=== PATIENT | female | born 1980 ===

== ENCOUNTER 2017-02-26 18:06 | Emergency (ER) | payer MEDICAID, OTHER ==
[2017-02-26 18:06] VITALS: BMI 24.9
[2017-02-26 18:16] VITALS: O2SAT 99
[2017-02-26] MEDS ORDERED: Sodium Chloride 0.9% 1,000 ML IV STA (19:00)
[2017-02-26 19:17] LABS: BASO % 0.3 % (0.0-2.0); EOS # 0.2 K/uL (0.0-0.7); EOS % 3.1 % (0.0-4.0); HEMOGLOBIN 13.5 g/dL (12.0-16.0); LYMPH # 1.8 K/uL (1.0-4.3); LYMPH % 25.4 % (20.0-40.0); MEAN CELL VOLUME 94.5 fl (81.0-99.0); MEAN CORPUSCULAR HEMOGLOBIN 31.2 pg (27.0-31.0); MONO # 0.7 K/uL (0.0-0.8); MONO % 9.2 % (0.0-10.0); NEUT # 4.5 K/uL (1.8-7.0); RBC 4.32 Mil/uL (3.80-5.20); WHITE BLOOD COUNT 7.3 K/uL (4.8-10.8)
--- NOTE | 2017-02-26 19:27 | ED PDOC ---
HPI: Abdomen Time Seen by Provider: 02/26/17 18:23 Chief Complaint (Nursing): Abdominal Pain Chief Complaint (Provider): Abdominal Pain History Per: Patient History/Exam Limitations: no limitations Onset/Duration Of Symptoms: Days (x1) Current Symptoms Are (Timing): Still Present Additional Complaint(s): 36 year old female with previous medical history of chronic kidney disease, who presents to the emergency department with a complaint of abdominal pain associated with nausea, 6 episodes of vomiting and 2 episodes of bloody diarrhea when she woke up at 0400 today after eating fish and homemade coconut candy the night before. Denied any fever, chills, difficulty urinating, bloody urine or incontinence. PMD: none provided Past Medical History Reviewed: Historical Data, Nursing Documentation, Vital Signs Vital Signs: Last Vital Signs Temp 97.9 F 02/26/17 19:31 Pulse 63 02/26/17 19:31 Resp 16 02/26/17 19:31 BP 90/68 L 02/26/17 19:31 Pulse Ox 99 02/26/17 23:03 - Medical History PMH: Hyperthyroidism, Hypothyroidism, Kidney Stones, Chronic Kidney Disease - Surgical History Surgical History: No Surg Hx - Family History Family History: States: Unknown Family Hx - Social History Current smoker - smoking cessation education provided: No Alcohol: Occasional Drugs: Denies - Home Medications Home Medications: Ambulatory Orders Medication Instructions Recorded Naproxen [Naprosyn] 500 mg PO Q12H #20 tab 12/31/15 traMADol [Ultram] 50 mg PO Q8 #10 tab 12/31/15 Nitrofurantoin Macrocrystals 100 mg PO BID #14 cap 04/14/16 [Macrobid] Phenazopyridine [Pyridium] 200 mg PO TID #6 tab 04/14/16 Ciprofloxacin [Cipro] 500 mg PO BID #19 tab 02/26/17 metroNIDAZOLE [Flagyl] 500 mg PO TID #29 tab 02/26/17 - Allergies Allergies/Adverse Reactions: Allergies Allergy/AdvReac Type Severity Reaction Status Date / Time No Known Allergies Allergy Verified 12/31/15 10:04 Review of Systems ROS Statement: Except As Marked, All Systems Reviewed And Found Negative Constitutional: Negative for: Fever, Chills Gastrointestinal: Positive for: Nausea, Vomiting (x6), Abdominal Pain, Diarrhea (x2 bloody episode) Genitourinary Female: Negative for: Dysuria, Incontinence, Hematuria Physical Exam - Reviewed Nursing Documentation Reviewed: Yes Vital Signs Reviewed: Yes - Physical Exam Appears: Positive for: Well, Non-toxic, No Acute Distress Cardiovascular/Chest: Positive for: Regular Rate, Rhythm, Chest Non Tender Respiratory: Positive for: Normal Breath Sounds. Negative for: Decreased Breath Sounds, Respiratory Distress Gastrointestinal/Abdominal: Positive for: Soft, Tenderness (diffuse around LLQ) . Negative for: Normal Exam, Guarding, Rebound Neurologic/Psych: Positive for: Alert (x3), Oriented - Laboratory Results Result Diagrams: 02/26/17 19:00 02/26/17 19:00 - ECG O2 Sat by Pulse Oximetry: 99 (RA) Pulse Ox Interpretation: Normal Medical Decision Making Medical Decision Making: Initial Impression: Enteritis; Food poison Initial Plan: * CT ABD/pelvis with IV contrast * CMP * Lipase * Urine * Urine dipstick * CBC * PTT * PT * Morphine 2mg IV * NS 1,000mls/hr * Zofran inj 4mg IV Upon review of old charts, pt basline systolic BP ~100. Accession No. : [id number] Patient Name / ID : RICHARDSON WAITE / [id number] Exam Date : 02/26/2017 19:50:06 ( Approved ) Study Comment : Sex / Age : F / 36Y Creator : Jim Pepe MD Dictator : Jim Pepe MD Wash Oil Cooler Operator : Bore Mill Operator : Jim Pepe MD Approver2 : Report Date : 02/27/2017 05:29:52 My Comment : PROCEDURE: CT Abdomen and Pelvis with contrast HISTORY: Abd pain, v/d COMPARISON: None. TECHNIQUE: Contrast dose: 95 cc Omnipaque 300 Radiation dose: Total exam DLP = 466.87 mGy-cm. This CT exam was performed using one or more of the following dose reduction techniques: Automated exposure control, adjustment of the mA and/or kV according to patient size, and/or use of iterative reconstruction technique. FINDINGS: LOWER THORAX: Unremarkable. LIVER: Unremarkable. No gross lesion or ductal dilatation. GALLBLADDER AND BILE DUCTS: Unremarkable. PANCREAS: Unremarkable. No gross lesion or ductal dilatation. SPLEEN: Unremarkable. ADRENALS: Unremarkable. No mass. KIDNEYS AND URETERS: Unremarkable. No hydronephrosis. No solid mass. VASCULATURE: Unremarkable. No aortic aneurysm. BOWEL: Thickening of the wall of the descending colon and sigmoid consistent with acute segmental colitis. Send APPENDIX: Normal appendix. PERITONEUM: Unremarkable. No free fluid. No free air. LYMPH NODES: Unremarkable. No enlarged lymph nodes. BLADDER: Unremarkable. REPRODUCTIVE: Unremarkable. BONES: No acute fracture. OTHER FINDINGS: None. IMPRESSION: Acute colitis confined to contiguous portions of the descending colon and sigmoid. Scribe Attestation: Documented by Stacy Kennedy, acting as a scribe for Farzana Reddy MD. Provider Scribe Attestation: All medical record entries made by the Scribe were at my direction and personally dictated by me. I have reviewed the chart and agree that the record accurately reflects my personal performance of the history, physical exam, medical decision making, and the department course for this patient. I have also personally directed, reviewed, and agree with the discharge instructions and disposition. Disposition - Clinical Impression Clinical Impression: Colitis - Disposition Referrals: [facility] [Outside] Renato Samuel MD, PhD [Staff Provider] - Disposition: Routine/Home Disposition Time: 23:01 Condition: IMPROVED Prescriptions: Ciprofloxacin [Cipro] 500 mg PO BID #19 tab metroNIDAZOLE [Flagyl] 500 mg PO TID #29 tab Instructions: Colitis (ED) Forms: [employer] (Barbadian)
[2017-02-26 19:28] LABS: ALB/GLOB RATIO 1.5 (1.0-2.1); ALBUMIN 4.3 g/dL (3.5-5.0); ALT/SGPT 34 U/L (9-52); AST/SGOT 21 U/L (14-36); BLOOD UREA NITROGEN 9 mg/dl (7-17); CALCIUM 8.5 mg/dL (8.4-10.2); GFR AFRICAN-AMERICAN > 60; GFR NON-AFRICAN AMERICAN > 60; INR 1.1 (0.9-1.2); LIPASE 48 U/L (23-300); PARTIAL THROMBOPLASTIN TIME 31.7 Seconds (25.6-37.1); PROTHROMBIN TIME 11.9 Seconds (9.8-13.1)
[2017-02-26 19:32] VITALS: BP 90/68; PULSE 63; RESP 16; TEMP 97.9
[2017-02-26] MEDS ORDERED: Sodium Chloride 0.9% 50 ML IV ONE (19:41)
[2017-02-26] MEDS ORDERED: Iohexol 300 100 ML IJ ONE (19:41)
[2017-02-26] MEDS ORDERED: metroNIDAZOLE 500mg/100ml NS 100 ML IV STA (21:42)
[2017-02-26] MEDS ORDERED: Ciprofloxacin 400mg/200ml D5W 400 MG/200 ML BAG IV STA (21:42)
[2017-02-26] MEDS ORDERED: Ciprofloxacin 400mg/200ml D5W 400 MG/200 ML BAG IVPB ONE (22:08)
[2017-02-26] MEDS ORDERED: metroNIDAZOLE 500mg/100ml NS 100 ML IVPB ONE (22:09)
--- NOTE | 2017-02-27 05:31 | CT ---
PROCEDURE: CT Abdomen and Pelvis with contrast HISTORY: Abd pain, v/d COMPARISON: None. TECHNIQUE: Contrast dose: 95 cc Omnipaque 300 Radiation dose: Total exam DLP = 466.87 mGy-cm. This CT exam was performed using one or more of the following dose reduction techniques: Automated exposure control, adjustment of the mA and/or kV according to patient size, and/or use of iterative reconstruction technique. FINDINGS: LOWER THORAX: Unremarkable. LIVER: Unremarkable. No gross lesion or ductal dilatation. GALLBLADDER AND BILE DUCTS: Unremarkable. PANCREAS: Unremarkable. No gross lesion or ductal dilatation. SPLEEN: Unremarkable. ADRENALS: Unremarkable. No mass. KIDNEYS AND URETERS: Unremarkable. No hydronephrosis. No solid mass. VASCULATURE: Unremarkable. No aortic aneurysm. BOWEL: Thickening of the wall of the descending colon and sigmoid consistent with acute segmental colitis. Send APPENDIX: Normal appendix. PERITONEUM: Unremarkable. No free fluid. No free air. LYMPH NODES: Unremarkable. No enlarged lymph nodes. BLADDER: Unremarkable. REPRODUCTIVE: Unremarkable. BONES: No acute fracture. OTHER FINDINGS: None. IMPRESSION: Acute colitis confined to contiguous portions of the descending colon and sigmoid. Concordant results (preliminary interpretation) provided by [employer]. Procedure Completed: 19:53 Preliminary ([employer]) Report: Dictated and Authenticated: 21:14 Final Interpretation: 05:29. February 27, 2017.
== END 2017-02-27 00:29 | disposition home or self-care (01) ==
LOC: H.ER 18:06
DX: K52.9 Noninfective gastroenteritis and colitis, unspecified (principal); E03.9 Hypothyroidism, unspecified; E05.90 Thyrotoxicosis, unspecified without thyrotoxic crisis or storm; N18.9 Chronic kidney disease, unspecified; Z87.442 Personal history of urinary calculi
CPT/HCPCS: 74177; 80053; 81025; 83690; 85025; 85610; 85730; 99283; J0744; J2270; J2405; J7040; Q9967

== ENCOUNTER 2017-06-14 11:08 | Emergency (ER) | payer MEDICAID, OTHER ==
[2017-06-14 11:16] VITALS: BMI 23.0
[2017-06-14 11:18] VITALS: BP 101/67; PULSE 62; RESP 16; TEMP 98.2; O2SAT 100
[2017-06-14] MEDS ORDERED: Sodium Chloride 0.9% 500 ML IV STA (11:36)
--- NOTE | 2017-06-14 11:39 | ED PDOC ---
HPI: Female Pain Time Seen by Provider: 06/14/17 11:17 Chief Complaint (Provider): Vaginal bleeding History Per: Patient History/Exam Limitations: no limitations Onset/Duration Of Symptoms: Days (today) Current Symptoms Are (Timing): Still Present Additional Complaint(s): Pt. with vaginal bleeding, pelvic cramping on left lower. No dysuria, weakness , headaches, dizziness, chest pain, dyspnea. Pain started today. Bleeding for 3 days. Is [address] Bernard yesterday. Past Medical History Reviewed: Nursing Documentation, Vital Signs Vital Signs: Last Vital Signs Temp 98.2 F 06/14/17 11:16 Pulse 62 06/14/17 11:16 Resp 16 06/14/17 11:16 BP 101/67 06/14/17 11:16 Pulse Ox 100 06/14/17 11:16 - Medical History PMH: Hypothyroidism - Surgical History Surgical History: No Surg Hx - Family History Family History: States: Unknown Family Hx - Living Arrangements Living Arrangements: With Family - Social History Alcohol: None Drugs: Denies - Home Medications Home Medications: Ambulatory Orders Medication Instructions Recorded Naproxen [Naprosyn] 500 mg PO Q12H #20 tab 12/31/15 traMADol [Ultram] 50 mg PO Q8 #10 tab 12/31/15 Nitrofurantoin Macrocrystals 100 mg PO BID #14 cap 04/14/16 [Macrobid] Phenazopyridine [Pyridium] 200 mg PO TID #6 tab 04/14/16 Ciprofloxacin [Cipro] 500 mg PO BID #19 tab 02/26/17 metroNIDAZOLE [Flagyl] 500 mg PO TID #29 tab 02/26/17 - Allergies Allergies/Adverse Reactions: Allergies Allergy/AdvReac Type Severity Reaction Status Date / Time No Known Allergies Allergy Verified 06/14/17 11:30 Review of Systems ROS Statement: Except As Marked, All Systems Reviewed And Found Negative Genitourinary Female: Positive for: Vaginal Bleeding, Pelvic Pain Physical Exam - Reviewed Nursing Documentation Reviewed: Yes Vital Signs Reviewed: Yes - Physical Exam Appears: Positive for: Non-toxic, No Acute Distress Head Exam: Positive for: ATRAUMATIC, NORMAL INSPECTION, NORMOCEPHALIC Skin: Positive for: Normal Color, Warm, DRY Eye Exam: Positive for: EOMI, Normal appearance, PERRL ENT: Positive for: Normal ENT Inspection Neck: Positive for: Normal, Painless ROM Cardiovascular/Chest: Positive for: Regular Rate, Rhythm Respiratory: Positive for: CNT, Normal Breath Sounds Gastrointestinal/Abdominal: Positive for: Bowel Sounds, Soft, Tenderness (mild left lower pelvic) Back: Positive for: Normal Inspection. Negative for: L CVA Tenderness, R CVA Tenderness Extremity: Positive for: Normal ROM Neurologic/Psych: Positive for: Alert, Oriented - Laboratory Results Result Diagrams: 06/14/17 11:45 06/14/17 11:45 - ECG O2 Sat by Pulse Oximetry: 100 - CT Scan/US US Other Rad Studies (CT/US): Read By Radiologist Other Rad Interpretation: possible demise - Progress ED Course And Treament: 1626: Stable. AAOx3. Pain free. Tolerated PO. Fu with pcp and obgyn. Disposition - Clinical Impression Clinical Impression: Threatened - Patient ED Disposition Is Patient to be Admitted: No Counseled Patient/Family Regarding: Studies Performed, Diagnosis, Need For Followup - Disposition Referrals: Edy Bernard MD [Staff Provider] - 06/17/17 Disposition: Routine/Home Disposition Time: 16:28 Condition: STABLE Additional Instructions: Return if not better in [address] Bernard. Wants pt. to fu with him Saturday. Instructions: Threatened Miscarriage Forms: [facility] (Slovenian), [facility] ED School/Work Excuse
[2017-06-14 12:17] LABS: BASO % 0.2 % (0.0-2.0); EOS # 0.1 K/uL (0.0-0.7); EOS % 1.7 % (0.0-4.0); LYMPH # 1.3 K/uL (1.0-4.3); LYMPH % 20.9 % (20.0-40.0); MEAN CORPUSCULAR HEMOGLOBIN 32.1 pg (27.0-31.0); MEAN CORPUSCULAR HGB CONC 33.4 g/dL (33.0-37.0); MONO # 0.5 K/uL (0.0-0.8); MONO % 7.8 % (0.0-10.0); NEUT # 4.4 K/uL (1.8-7.0); NEUT % 69.4 % (50.0-75.0); RBC 4.05 Mil/uL (3.80-5.20); RED CELL DISTRIBUTION WIDTH 13.1 % (11.5-14.5); WHITE BLOOD COUNT 6.3 K/uL (4.8-10.8)
[2017-06-14 12:26] LABS: ALB/GLOB RATIO 1.3 (1.0-2.1); ALBUMIN 4.2 g/dL (3.5-5.0); ALT/SGPT 33 U/L (9-52); AST/SGOT 21 U/L (14-36); BLOOD UREA NITROGEN 9 mg/dl (7-17); GFR AFRICAN-AMERICAN > 60; GFR NON-AFRICAN AMERICAN > 60
--- NOTE | 2017-06-14 15:32 | US ---
PROCEDURE: OB Pelvic Ultrasound HISTORY: preg and pain, spontaneous vaginal bleeding LMP: 04/13/2017, suggesting estimated gestational age of 7 weeks 5 days. COMPARISON: None available. TECHNIQUE: Transvaginal pelvic ultrasound was performed with longitudinal and transverse images submitted for interpretation. FINDINGS: UTERUS: A gestational sac is identified within the endometrial cavity with yolk sac and pole identified. A double decidual reaction is appreciated surrounding the gestational sac. Mean crown-rump length measures 0.83 cm corresponds to 6 weeks 5 days with mean sac diameter of 2.3 cm corresponding to 6 weeks 6 day gestational age. No cardiac activity is detectable at this time. Further, a 5 mm cystic structure seen developing in the decidual reaction. Lucency in the periphery the decidual reaction may indicate subacute or limited chronic decidual hemorrhage. Uterus measures 9.4 x 6.0 x 5.3 cm. No discrete myometrial mass identified. . CERVIX: Measures 3.9 cm. Long and closed. No cervical abnormality seen. RIGHT OVARY: Measures 2.3 x 1.9 x 2.8 cm. No mass lesion. Normal flow. A small corpus luteum cyst seen related to the right ovary. LEFT OVARY: Not identified. No suspicious adnexal mass or fluid collection appreciable. FREE FLUID: None. OTHER FINDINGS: None. IMPRESSION: Findings suggest demise. pole is identified within the gestational sac in the endometrial cavity with mean crown-rump length measurement suggesting 6 weeks 5 days gestation, concordant with menstrual derived dates, but there is no detectable cardiac activity at this time. Decidual reaction may be degrading at this time with limited chorionic/ subchorionic hemorrhage not excluded. Clinical and sonographic follow-up are advised.
== END 2017-06-14 16:54 | disposition home or self-care (01) ==
LOC: H.ER 11:08
DX: O20.0 Threatened abortion (principal); Z3A.08 8 weeks gestation of pregnancy; O99.281 Endocrine, nutritional and metabolic diseases complicating pregnancy, first trimester; E03.9 Hypothyroidism, unspecified
CPT/HCPCS: 76817; 80053; 81025; 84702; 85025; 86850; 86900; 96360; 96361; 99283; J7040

== ENCOUNTER 2017-07-04 23:11 | Inpatient (IN) | payer OTHER ==
[2017-07-04 23:22] VITALS: BMI 23.1
--- NOTE | 2017-07-05 00:22 | ED PDOC ---
HPI: Female Pain Time Seen by Provider: 07/04/17 23:28 Chief Complaint (Nursing): Female Genitourinary History Per: Patient History/Exam Limitations: no limitations Onset/Duration Of Symptoms: Days Current Symptoms Are (Timing): Still Present Quality Of Discomfort: Pressure Associated Symptoms: denies: Fever, Chills, Nausea, Vomiting Additional Complaint(s): No PMHx p/w VB, abdominal cramping, patient states that she is going through a miscarriage, was seen by Dr. Bernard and was told her beta-hcg was trending downwards, for the past 5 days has been having lower abdominal cramping and bleeding, states that she went through 3 pads today. Denies lightheadedness, dizziness. No fevers, chills. Past Medical History Reviewed: Historical Data, Nursing Documentation, Vital Signs Vital Signs: Last Vital Signs Temp 98.6 F 07/04/17 23:22 Pulse 82 07/04/17 23:22 Resp 16 07/04/17 23:22 BP 124/75 07/04/17 23:22 Pulse Ox 100 07/04/17 23:22 - Medical History PMH: Asthma, Hypothyroidism, Kidney Stones, Chronic Kidney Disease - Family History Family History: States: Unknown Family Hx - Home Medications Home Medications: Ambulatory Orders Medication Instructions Recorded Levothyroxine [Synthroid] 1 tab PO DAILY 07/05/17 - Allergies Allergies/Adverse Reactions: Allergies Allergy/AdvReac Type Severity Reaction Status Date / Time No Known Allergies Allergy Verified 07/04/17 23:22 Review of Systems ROS Statement: Except As Marked, All Systems Reviewed And Found Negative Gastrointestinal: Positive for: Abdominal Pain Genitourinary Female: Positive for: Vaginal Bleeding Physical Exam - Reviewed Nursing Documentation Reviewed: Yes Vital Signs Reviewed: Yes - Physical Exam Appears: Positive for: Well, Non-toxic, No Acute Distress Head Exam: Positive for: ATRAUMATIC, NORMAL INSPECTION, NORMOCEPHALIC Skin: Positive for: Normal Color, Warm, DRY Eye Exam: Positive for: EOMI, Normal appearance, PERRL ENT: Positive for: Normal ENT Inspection Neck: Positive for: Normal, Painless ROM Cardiovascular/Chest: Positive for: Regular Rate, Rhythm Respiratory: Positive for: CNT, Normal Breath Sounds Gastrointestinal/Abdominal: Positive for: Normal Exam, Soft Pelvic Exam: Positive for: External Exam Normal, Blood (clots), Other (Cervix closed). Negative for: No Cerv. Motion Tender, No Masses, Tender W/Cervical Motion Back: Positive for: Normal Inspection Extremity: Positive for: Normal ROM Neurologic/Psych: Positive for: Alert, Oriented - Laboratory Results Result Diagrams: 07/05/17 00:35 - ECG O2 Sat by Pulse Oximetry: 100 Pulse Ox Interpretation: Normal Medical Decision Making Medical Decision MakinPM A/P: Patient w/ recent miscarriage undergoing VB and abdominal pain -patient cervix closed (english tutor was nurse Christine Briceño) -likely patient has completed Ab -will get US and beta and re-eval 130AM EXAM: US CLINICAL HISTORY: 37 years old, female; Pain and signs and symptoms; Lmp or gestational age (in weeks): 04/23/17; Antepartum complications; Bleeding; Other: Cramps/pain; ; Additional info: Vb, preg, possible demise TECHNIQUE: Real-time transvaginal and obstetrical ultrasound of the maternal pelvis and a first trimester with image documentation. Transvaginal imaging was used for better evaluation of the fetus and adnexa. COMPARISON: CT - ABD PELVIS W/O PO OR IV CONT 2015-05-11 02:04 FINDINGS: Gestation: Intrauterine gestational sac noted. Estimated gestational age based on crown-rump length of 6 weeks 3 days. No cardiac activity is seen. Uterus/cervix: No acute abnormality as visualized. No myometrial mass. Ovaries: No acute abnormality as visualized. Free fluid: No free fluid. IMPRESSION: Intrauterine gestational sac noted. Estimated gestational age based on crown- rump length of 6 weeks 3 days. No cardiac activity is seen. Correlate clinically. Thank you for allowing us to participate in the care of your patient. Dictated and Authenticated by: Martha Greer MD 07/05/2017 12:49 AM Eastern Time ([place] & [place]) Case discussed with Dr. Bernard, he will take patient to OR tomorrow for D&C for missed Ab. Patient still in pain, will order morphine 2mg IV. Disposition - Clinical Impression Clinical Impression: Missed - Patient ED Disposition Is Patient to be Admitted: Yes Discussed With : Edy Bernard - Disposition Disposition Time: 01:30 Condition: FAIR Forms: [employer] (Maltese)
--- NOTE | 2017-07-05 00:49 | US ---
EXAM: US CLINICAL HISTORY: 37 years old, female; Pain and signs and symptoms; Lmp or gestational age (in weeks): 04/23/17; Antepartum complications; Bleeding; Other: Cramps/pain; ; Additional info: Vb, preg, possible demise TECHNIQUE: Real-time transvaginal and obstetrical ultrasound of the maternal pelvis and a first trimester with image documentation. Transvaginal imaging was used for better evaluation of the fetus and adnexa. COMPARISON: CT - ABD PELVIS W/O PO OR IV CONT 2015-05-11 02:04 FINDINGS: Gestation: Intrauterine gestational sac noted. Estimated gestational age based on crown-rump length of 6 weeks 3 days. No cardiac activity is seen. Uterus/cervix: No acute abnormality as visualized. No myometrial mass. Ovaries: No acute abnormality as visualized. Free fluid: No free fluid. IMPRESSION: Intrauterine gestational sac noted. Estimated gestational age based on crown-rump length of 6 weeks 3 days. No cardiac activity is seen. Correlate clinically.
[2017-07-05 00:53] LABS: HEMOGLOBIN 12.6 g/dL (12.0-16.0); MEAN CELL VOLUME 96.6 fl (81.0-99.0); MEAN CORPUSCULAR HEMOGLOBIN 32.5 pg (27.0-31.0); MEAN CORPUSCULAR HGB CONC 33.6 g/dL (33.0-37.0); RBC 3.87 Mil/uL (3.80-5.20); RED CELL DISTRIBUTION WIDTH 12.7 % (11.5-14.5); WHITE BLOOD COUNT 7.9 K/uL (4.8-10.8)
[2017-07-05] MEDS ORDERED: Sodium Chloride 0.9% 1,000 ML IV STA ×2 (01:26→04:22)
[2017-07-05 02:01] VITALS: O2SAT 100
[2017-07-05 02:21] LABS: BLOOD UREA NITROGEN 14 mg/dl (7-17); CALCIUM 8.8 mg/dL (8.4-10.2); GFR AFRICAN-AMERICAN > 60; GFR NON-AFRICAN AMERICAN > 60
[2017-07-05 02:37] LABS: SQUAMOUS EPITHIAL 3 /hpf (0-5); URINE BACTERIA RARE (<OCC); URINE BILIRUBIN NEGATIVE (NEGATIVE); URINE BLOOD LARGE (NEGATIVE); URINE CLARITY CLOUDY (Clear); URINE COLOR YELLOW (YELLOW); URINE GLUCOSE (UA) NEG (Normal); URINE LEUKOCYTE ESTERASE NEG Leu/uL (Negative); URINE PROTEIN NEGATIVE (NEGATIVE); URINE UROBILINOGEN 0.2-1.0 mg/dL (0.2-1.0)
[2017-07-05 03:09] LABS: PARTIAL THROMBOPLASTIN TIME 34.5 Seconds (25.6-37.1); PROTHROMBIN TIME 11.5 Seconds (9.8-13.1)
[2017-07-05] MEDS ORDERED: Lactated Ringer's 1,000 ML IV SCH (06:30)
--- NOTE | 2017-07-05 07:20 | CP.SDSHP ---
Same Day Surgery H & P - History Proposed Procedure: d/C Pre-Op Diagnosis: missed /vaginal bleeding/pain - Previous Medical/Surgical History Endocrine/Metabolic: Thyroid Disease Misc: Pain: 4.Moderate Pain - Allergies Allergies: Allergies No Known Allergies Allergy (Verified 07/04/17 23:22) - Physical Exam General Appearance: NAD, well nourished Vital Signs: Vital Signs 07/04/17 07/05/17 07/05/17 23:22 01:40 02:01 Temperature 98.6 F 97.9 F Pulse Rate 82 63 Respiratory 16 16 Rate Blood Pressure 124/75 102/57 L O2 Sat by Pulse 100 99 100 Oximetry 07/05/17 07/05/17 07/05/17 04:08 04:28 04:52 Temperature 98.0 F 98.0 F Pulse Rate 60 61 61 Respiratory 18 18 18 Rate Blood Pressure 87/53 L 93/66 L 93/66 L O2 Sat by Pulse 100 100 Oximetry 07/05/17 07/05/17 05:05 05:17 Temperature 98.0 F Pulse Rate 57 L Respiratory 18 18 Rate Blood Pressure 97/62 L O2 Sat by Pulse 96 100 Oximetry Mental Status: Alert & Oriented x3 Heart: WNL Lungs: WNL - {Optional Preform as Required} Breast: WNL Abdomen: WNL HOSPITALITY HOUSE SUPERVISOR: Other Ortho: WNL Other Pertinent Findings: Uterus upper limit size, cx bleeding per os - Impression Impression: missed ab with fallling SBS levels and no FCA on sono/vaginal bleeding and pain - Date & Time Date: 07/05/17 Time: 07:21 Short Stay Discharge - Short Stay Discharge Admitting Diagnosis/Reason for Visit: MISSED ,VAGINAL BLEEDING Disposition: HOME/ ROUTINE Referrals: Jonathan Eng MD [Primary Care Provider] -
[2017-07-05] MEDS ORDERED: Midazolam 2 MG/2 ML VIAL ONE (07:24)
[2017-07-05] MEDS ORDERED: ePHEDrine 50 mg/ml Inj ONE (07:24)
[2017-07-05] MEDS ORDERED: Propofol 10 mg/ml Inj (20 ML) ONE (07:24)
[2017-07-05] MEDS ORDERED: Succinylcholine 200 mg/10 ml Inj IV ONE (07:24)
[2017-07-05] MEDS ORDERED: Lactated Ringer's 1,000 ML IV ONE (07:40)
[2017-07-05] MEDS ORDERED: cefOXitin IV 1 gm in Dextrose 1 GM/50 ML BAG IVPB ONE (07:46)
[2017-07-05] MEDS ORDERED: Oxytocin 10 Units/ml Inj IM ONE (08:00)
[2017-07-05] MEDS ORDERED: Sodium Chloride 0.9% 1,000 ML IV ONE (08:00)
[2017-07-05] MEDS ORDERED: Dexamethasone 4 mg/1 ml ONE (08:09)
[2017-07-05] MEDS ORDERED: Oxycodone/Acetaminophen 5/325 mg Tab PO PRN (08:43)
[2017-07-05 09:16] VITALS: RESP 18
--- NOTE | 2017-07-05 13:08 | CP.SDSHP ---
Same Day Surgery H & P - Allergies Allergies: Allergies No Known Allergies Allergy (Verified 07/04/17 23:22) - Physical Exam Vital Signs: Vital Signs 07/05/17 07/05/17 07/05/17 05:17 08:15 08:30 Temperature 98.0 F 97.0 F L 97.2 F L Pulse Rate 57 L 75 73 Respiratory 18 18 18 Rate Blood Pressure 97/62 L 116/71 108/64 O2 Sat by Pulse 100 100 100 Oximetry 07/05/17 07/05/17 07/05/17 08:45 09:00 09:15 Temperature 97.3 F L Pulse Rate 64 67 72 Respiratory 20 20 18 Rate Blood Pressure 104/55 L 100/64 101/64 O2 Sat by Pulse 100 100 100 Oximetry 07/05/17 07/05/17 07/05/17 09:45 10:00 10:15 Temperature 97.1 F L 97.9 F Pulse Rate 68 68 61 Respiratory 18 18 18 Rate Blood Pressure 106/64 106/58 L 101/65 O2 Sat by Pulse 99 100 100 Oximetry 07/05/17 07/05/17 11:15 12:15 Temperature 97.7 F 97.8 F Pulse Rate 64 62 Respiratory 18 18 Rate Blood Pressure 104/62 102/63 O2 Sat by Pulse 100 100 Oximetry Short Stay Discharge - Short Stay Discharge Admitting Diagnosis/Reason for Visit: MISSED ,VAGINAL BLEEDING Referrals: Edy Bernard MD [Staff Provider] - Jonathan Eng MD [Primary Care Provider] - Follow-up: 2 wks in office Instructions: Dilation and Curettage (DC), Miscarriage (DC) Additional Instructions (Diet, Activity): pelvic rest until seen by DRAWER MAKER, make follow up appointment with Dr. Bernard Progress Note/Discharge Note with Instructions: recovered well, discussed about operative findings and advised for pelvic and bed rest and follow up in office 2 wks
[2017-07-05 13:54] VITALS: BP 101/61; PULSE 78; TEMP 98.1
--- NOTE | 2017-07-08 14:21 | OP ---
PROCEDURE DATE: 07/05/2017 PREOPERATIVE DIAGNOSES: 1. Missed . 2. Vaginal bleeding. 3. Pelvic pain. POSTOPERATIVE DIAGNOSES: 1. Missed . 2. Vaginal bleeding. 3. Pelvic pain. PROCEDURE PERFORMED: Suction dilatation and curettage. SURGEON: Edy Bernard MD TYPE OF ANESTHESIA: General. ANESTHESIA ADMINISTERED BY: Rain Montesinos MD ESTIMATED BLOOD LOSS: 50 mL. DRAINS USED: None. REPLACEMENTS USED: None. FINDINGS: 1. Cervix appears fingertip of bleeding per os. 2. Uterus anteverted, mobiles 6 to 8 weeks' size, smooth to palpation. 3. No adnexal masses to palpation bilaterally. 4. Suction dilatation and curettage performed using a number 7 plastic cannula without any complications. DESCRIPTION OF THE PROCEDURE: The patient was taken to the operating room and placed in the operating table in a supine position. Following induction of general anesthesia, the patient was then replaced in a dorsal lithotomy position. Perineal and genital areas were draped and prepped in the usual sterile manner. At this time, a sterile catheter was then placed into the bladder, clear fluid was then evacuated from the bladder. The patient was then examined under anesthesia with some of the above findings. Heavy weighted speculum was then placed in the posterior wall of the vagina exposing the cervix. The anterior lip of the cervix was then grasped using a single tooth tenaculum and retracted superiorly. At this time, the endocervical canal was then dilated using Hermes dilators in an increasing size manner. Following this, using a number 7 plastic cannula, suction curettage was then performed, moderate amount of tissue was then obtained and sent to Pathology. Following this, the uterus massaged and contracted well. The uterine cavity was then gently curette using sharp curettage, minimal amount tissue obtained. Single tooth tenaculum was then removed, no bleeding noted. The uterus was massage and contracted well. The patient tolerated the procedure well. There were no complications. She was transferred to the recovery room in satisfactory condition. Edy Bernard MD
== END 2017-07-05 14:37 | disposition home or self-care (01) | DRG 381 ==
LOC: H.ER 23:11 → H.ERHOLD 07-05 01:29 → H.MEDSURG1 07-05 05:04
PROVIDERS: ADMIT Specialist; ATTEND Specialist
PROC: 10D17ZZ Extraction of Products of Conception, Retained, Via Natural or Artificial Opening (ICD-10-PCS; principal; 2017-07-05 07:45)
DX: O02.1 Missed abortion (principal)

== ENCOUNTER 2017-12-14 12:05 | Emergency (ER) | payer OTHER ==
[2017-12-14 12:05] VITALS: BMI 23.1
--- NOTE | 2017-12-14 12:15 | ED PDOC ---
HPI: General Adult Time Seen by Provider: 12/14/17 12:15 Chief Complaint (Provider): with bleeding History Per: Patient Additional Complaint(s): 37-year-old female currently 7 weeks presents with spotting and vaginal discharge that started yesterday. Patient denies any pain. She denies any fever, chills, nausea, vomiting, diarrhea or constipation. Patient states she had a miscarriage in June 2017. She is . OB: Dr. Bernard Past Medical History Reviewed: Historical Data, Nursing Documentation, Vital Signs Vital Signs: Last Vital Signs Temp 98.2 F 12/14/17 12:20 Pulse 89 12/14/17 12:20 Resp 18 12/14/17 12:20 BP 94/45 L 12/14/17 12:20 Pulse Ox 99 12/14/17 14:06 - Medical History PMH: Hypothyroidism - Surgical History Surgical History: No Surg Hx - Family History Family History: States: No Known Family Hx - Living Arrangements Living Arrangements: With Family - Social History Current smoker - smoking cessation education provided: No Alcohol: None Drugs: Denies - Home Medications Home Medications: Ambulatory Orders Medication Instructions Recorded Levothyroxine [Synthroid] 1 tab PO DAILY 07/05/17 - Allergies Allergies/Adverse Reactions: Allergies Allergy/AdvReac Type Severity Reaction Status Date / Time No Known Allergies Allergy Verified 07/04/17 23:22 Review of Systems ROS Statement: Except As Marked, All Systems Reviewed And Found Negative Constitutional: Negative for: Fever Respiratory: Negative for: Cough Gastrointestinal: Negative for: Nausea, Vomiting, Diarrhea Genitourinary Female: Positive for: Vaginal Discharge, Vaginal Bleeding ( spotting), Pelvic Pain. Negative for: Dysuria, Frequency, Incontinence, Hematuria Physical Exam - Reviewed Nursing Documentation Reviewed: Yes Vital Signs Reviewed: Yes - Physical Exam Appears: Positive for: Well, Non-toxic, No Acute Distress Skin: Positive for: Normal Color. Negative for: Rash Eye Exam: Positive for: Normal appearance Cardiovascular/Chest: Positive for: Regular Rate, Rhythm Respiratory: Positive for: Normal Breath Sounds. Negative for: Wheezing, Respiratory Distress Gastrointestinal/Abdominal: Positive for: Soft. Negative for: Tenderness, Distended, Guarding, Rebound Back: Negative for: L CVA Tenderness, R CVA Tenderness Extremity: Positive for: Normal ROM Neurologic/Psych: Positive for: Alert, Oriented - Laboratory Results Result Diagrams: 12/14/17 13:10 12/14/17 13:10 Urine POC: Positive Urine dip results: Negative for: Leukocyte Esterase, Blood, Nitrate, Ketones, Glucose, Bilirubin, Protein - ECG O2 Sat by Pulse Oximetry: 99 Pulse Ox Interpretation: Normal - Other Rad OB TV US X-Ray: Read By Radiologist X-Ray Interpretation: see below Medical Decision Making Medical Decision Makin37 y/o female with spotting Plan: Urine test and dip CBC CMP Blood type OB TV US IVF US: HISTORY: 7 weeks with spoting COMPARISON: TECHNIQUE: FINDINGS: The uterus is normal in size. There is an intrauterine gestational sac measuring 2.4 cm corresponding to 7 weeks gestation. There is a pole with crown-rump length of 1 cm corresponding to 7 weeks. heart motion is identified. The ovaries are normal. IMPRESSION: As above. Patient is aware of all diagnostic testing results, all questions answered. She was advised to follow-up this coming week with Dr. Bernard and was instructed to return to emergency room any time if acutely worse. Disposition - Clinical Impression Clinical Impression: Spotting affecting in first trimester - Patient ED Disposition Is Patient to be Admitted: No Counseled Patient/Family Regarding: Studies Performed, Diagnosis, Need For Followup - Disposition Referrals: Edy Bernard MD [Staff Provider] - Disposition: Routine/Home Disposition Time: 14:37 Condition: STABLE Additional Instructions: Follow-up with your OB next week or return to ED any time if acutely worse. Instructions: Bleeding With Results - Lab Results Lab Results: 12/14/17 12/14/17 12/14/17 13:10 13:10 13:10 WBC 6.0 RBC 3.99 Hgb 13.0 Hct 38.1 MCV 95.5 MCH 32.6 H MCHC 34.1 RDW 13.1 Plt Count 173 MPV 8.2 Neut % (Auto) 71.1 Lymph % (Auto) 20.5 [place] % (Auto) 5.3 Eos % (Auto) 2.9 Baso % (Auto) 0.2 Neut # (Auto) 4.3 Lymph # (Auto) 1.2 [place] # (Auto) 0.3 Eos # (Auto) 0.2 Baso # (Auto) 0.0 Sodium 137 Potassium 3.9 Chloride 106 Carbon Dioxide 25 Anion Gap 10 BUN 10 Creatinine 0.6 L Est GFR ( Amer) > 60 Est GFR (Non-Af Amer) > 60 Random Glucose 97 Calcium 9.0 Total Bilirubin 0.5 AST 19 ALT 28 Alkaline Phosphatase 49 Total Protein 7.0 Albumin 4.0 Globulin 3.0 Albumin/Globulin Ratio 1.3 Beta HCG, Quant 83310.00 Blood Type O POSITIVE Antibody Screen Negative BBK History Checked Patient has bt
[2017-12-14] MEDS ORDERED: Sodium Chloride 0.9% 1,000 ML IV STA (12:49)
[2017-12-14 13:27] LABS: BASO % 0.2 % (0.0-2.0); EOS # 0.2 K/uL (0.0-0.7); EOS % 2.9 % (0.0-4.0); LYMPH # 1.2 K/uL (1.0-4.3); LYMPH % 20.5 % (20.0-40.0); MEAN CELL VOLUME 95.5 fl (81.0-99.0); MEAN CORPUSCULAR HEMOGLOBIN 32.6 pg (27.0-31.0); MEAN CORPUSCULAR HGB CONC 34.1 g/dL (33.0-37.0); MEAN PLATELET VOLUME 8.2 fl (7.2-11.7); MONO # 0.3 K/uL (0.0-0.8); MONO % 5.3 % (0.0-10.0); NEUT # 4.3 K/uL (1.8-7.0); NEUT % 71.1 % (50.0-75.0); RBC 3.99 Mil/uL (3.80-5.20); RED CELL DISTRIBUTION WIDTH 13.1 % (11.5-14.5)
[2017-12-14 13:36] LABS: ALB/GLOB RATIO 1.3 (1.0-2.1); ALT/SGPT 28 U/L (9-52); AST/SGOT 19 U/L (14-36); BLOOD UREA NITROGEN 10 mg/dl (7-17); GFR NON-AFRICAN AMERICAN > 60
--- NOTE | 2017-12-14 13:54 | US ---
Date of service: 12/14/2017 PROCEDURE: HISTORY: 7 weeks with spoting COMPARISON: TECHNIQUE: FINDINGS: The uterus is normal in size. There is an intrauterine gestational sac measuring 2.4 cm corresponding to 7 weeks gestation. There is a pole with crown-rump length of 1 cm corresponding to 7 weeks. heart motion is identified. The ovaries are normal. IMPRESSION: As above.
[2017-12-14 15:11] VITALS: BP 130/78; PULSE 78; RESP 19; TEMP 97; O2SAT 98
== END 2017-12-14 15:12 | disposition home or self-care (01) ==
LOC: H.ER 12:05
DX: O26.851 Spotting complicating pregnancy, first trimester (principal); Z36.9 Encounter for antenatal screening, unspecified; E03.9 Hypothyroidism, unspecified; N89.8 Other specified noninflammatory disorders of vagina; O99.281 Endocrine, nutritional and metabolic diseases complicating pregnancy, first trimester; Z3A.01 Less than 8 weeks gestation of pregnancy
CPT/HCPCS: 76815; 80053; 81025; 84702; 85025; 86850; 86900; 99282; J7030

== ENCOUNTER 2018-01-29 09:28 | Emergency (ER) | payer OTHER ==
[2018-01-29 09:34] VITALS: BMI 24.0
[2018-01-29 11:04] VITALS: BP 120/70; PULSE 74; RESP 20; TEMP 98; O2SAT 98
--- NOTE | 2018-01-29 11:20 | ED PDOC ---
HPI: CCC, URI, Sore Throat Time Seen by Provider: 01/29/18 10:15 Chief Complaint (Nursing): ENT Problem Chief Complaint (Provider): ENT Problem History Per: Patient History/Exam Limitations: no limitations Onset/Duration Of Symptoms: Days Current Symptoms Are (Timing): Still Present Location Of Pain: Ear(s), Throat Associated Symptoms: Sore Throat. denies: Fever, Chills, Vomiting Additional Complaint(s): Monalisa Escobedo is a 37 year old female with a past medical history of asthma who is 13 weeks and is presenting for evaluation of worsening throat pain onset 6 weeks ago. One month ago, patient states she saw Dr. Eng who told her to take Benadryl but now patient states that pain has spread to her ears bilaterally. She states that it is typically a severe itching sensation and this morning she reports that she woke up with bilateral throbbing in eras. Patient admits thats he called her PMD who told her to come to the ED for evaluation. She denies any fevers, headaches, chills, drainage from ears, or taking any Tylenol over the counter seasonal allergy medication because she is . Patient does add that she has occasional clear discharge from nose accompanied by itchy throat. She offers no other medical complaints at this time. PMD: Jonathan Eng Past Medical History Reviewed: Historical Data, Nursing Documentation, Vital Signs Vital Signs: Last Vital Signs Temp 98 F 01/29/18 11:02 Pulse 74 01/29/18 11:02 Resp 20 01/29/18 11:02 BP 120/70 01/29/18 11:02 Pulse Ox 98 01/29/18 11:02 - Medical History PMH: Asthma, Hypothyroidism, Kidney Stones Denies: HIV, Chronic Kidney Disease - Surgical History Surgical History: No Surg Hx - Family History Family History: States: Unknown Family Hx - Social History Current smoker - smoking cessation education provided: No Alcohol: None Drugs: Denies - Home Medications Home Medications: Ambulatory Orders Medication Instructions Recorded Levothyroxine [Synthroid] 1 tab PO DAILY 07/05/17 Acetaminophen [Tylenol 325mg tab] 650 mg PO Q6 #100 tab 01/29/18 Levocetirizine Dihydrochloride 5 mg PO DAILY #30 tablet 01/29/18 [Xyzal] - Allergies Allergies/Adverse Reactions: Allergies Allergy/AdvReac Type Severity Reaction Status Date / Time No Known Allergies Allergy Verified 07/04/17 23:22 Review of Systems ROS Statement: Except As Marked, All Systems Reviewed And Found Negative Constitutional: Negative for: Fever, Chills ENT: Positive for: Ear Pain, Nose Discharge. Negative for: Ear Discharge Neurological: Negative for: Headache Physical Exam - Reviewed Nursing Documentation Reviewed: Yes Vital Signs Reviewed: Yes - Physical Exam Appears: Positive for: Non-toxic, No Acute Distress Head Exam: Positive for: ATRAUMATIC, NORMAL INSPECTION, NORMOCEPHALIC Skin: Positive for: Normal Color, Warm, DRY Eye Exam: Positive for: EOMI, Normal appearance, PERRL ENT: Positive for: Pharynx Is (oral pharynx erythematous, no tonsillar swelling or exudates: 1 small 1 mm pimple like white lesion to the left anterior tonsillar pillar ), TM Is/Are (visible, non-bulging, non-erythematous, no drainage and external ear canal intact), Other (nares patent bilaterally, ). Negative for: Tonsillar Exudate, Tonsillar Swelling Neck: Positive for: Normal (no tender enlarged lymph nodes), Painless ROM Cardiovascular/Chest: Positive for: Regular Rate, Rhythm. Negative for: Murmur Respiratory: Positive for: Normal Breath Sounds. Negative for: Respiratory Distress Gastrointestinal/Abdominal: Positive for: Normal Exam, Soft. Negative for: Tenderness Back: Positive for: Normal Inspection Extremity: Positive for: Normal ROM. Negative for: Deformity, Swelling Neurologic/Psych: Positive for: Alert, Oriented. Negative for: Motor/Sensory Deficits - ECG O2 Sat by Pulse Oximetry: 98 (RA) Pulse Ox Interpretation: Normal Medical Decision Making Medical Decision Making: Time: 10:25 A/P: most likely allergic rhinitis with pharyngeal irritation --Tylenol for pain --Rx for xyzal --Patient to follow up with PMD in 1 week Scribe Attestation: Documented by Jannette Molina, acting as a scribe for Kerri Damon MD. Provider Scribe Attestation: All medical record entries made by the Scribe were at my direction and personally dictated by me. I have reviewed the chart and agree that the record accurately reflects my personal performance of the history, physical exam, medical decision making, and the department course for this patient. I have also personally directed, reviewed, and agree with the discharge instructions and disposition. Disposition - Clinical Impression Clinical Impression: Ear, nose and throat disorder - Disposition Condition: STABLE Additional Instructions: Take Tylenol for pain. Take Xyzal daily for allergic symptoms. Follow up with primary medical doctor in one week. Return to the emergency department if symptoms worsen or if new symptoms develop. Prescriptions: Acetaminophen [Tylenol 325mg tab] 650 mg PO Q6 #100 tab Levocetirizine Dihydrochloride [Xyzal] 5 mg PO DAILY #30 tablet Forms: [employer] (French) Print Language: SLOVAK
== END 2018-01-29 11:02 | disposition home or self-care (01) ==
LOC: H.ER 09:28
DX: H61.10 Unspecified noninfective disorders of pinna (principal)

== ENCOUNTER 2018-03-21 11:52 | Emergency (ER) | payer OTHER ==
[2018-03-21 11:57] VITALS: BMI 24.0
[2018-03-21 12:29] VITALS: RESP 18; O2SAT 100
--- NOTE | 2018-03-21 13:23 | ED PDOC ---
HPI: CCC, URI, Sore Throat Time Seen by Provider: 03/21/18 12:31 Chief Complaint (Nursing): Flu-like Symptoms Chief Complaint (Provider): Cough, bodyaches History Per: Patient History/Exam Limitations: no limitations Have you had recent travel within the past 21 days to any of the following countries: [place], [place], [place] or [place]?: No Onset/Duration Of Symptoms: Days Current Symptoms Are (Timing): Still Present Location Of Pain: Diffuse Myalgias Associated Symptoms: Cough Additional History Per: Patient Additional Complaint(s): 37yo female, EGA of 20 weeks, comes to ER reporting 2 day history of cough, bodyaches and chills. Patient otherwise denies any abdominal pain, vaginal bleeding or discharge. She states she feels her baby move normally. Patient also denies any chest pain, weakness, shortness of breath, and offers no additional complaints. PMD: Dr. Bernard Past Medical History Reviewed: Historical Data, Nursing Documentation, Vital Signs Vital Signs: Last Vital Signs Temp 99 F 03/21/18 12:27 Pulse 98 H 03/21/18 12:27 Resp 18 03/21/18 12:27 BP 140/70 03/21/18 12:27 Pulse Ox 100 03/21/18 12:27 - Medical History PMH: Asthma, Hypothyroidism, Kidney Stones Denies: HIV, Chronic Kidney Disease - Surgical History Surgical History: No Surg Hx - Family History Family History: States: No Known Family Hx - Living Arrangements Living Arrangements: With Family - Social History Current smoker - smoking cessation education provided: No Alcohol: None Drugs: Denies - Home Medications Home Medications: Ambulatory Orders Medication Instructions Recorded Levothyroxine [Synthroid] 1 tab PO DAILY 07/05/17 Acetaminophen [Tylenol 325mg tab] 650 mg PO Q6 #100 tab 01/29/18 Levocetirizine Dihydrochloride 5 mg PO DAILY #30 tablet 01/29/18 [Xyzal] Oseltamivir Phosphate [Tamiflu] 75 mg PO BID #10 capsule 03/21/18 - Allergies Allergies/Adverse Reactions: Allergies Allergy/AdvReac Type Severity Reaction Status Date / Time No Known Allergies Allergy Verified 07/04/17 23:22 Review of Systems ROS Statement: Except As Marked, All Systems Reviewed And Found Negative Constitutional: Positive for: Chills, Malaise. Negative for: Fever Cardiovascular: Negative for: Chest Pain Respiratory: Positive for: Cough. Negative for: Shortness of Breath Genitourinary Female: Negative for: Vaginal Discharge, Vaginal Bleeding, Pelvic Pain Neurological: Negative for: Weakness Physical Exam - Reviewed Nursing Documentation Reviewed: Yes Vital Signs Reviewed: Yes - Physical Exam Appears: Positive for: Non-toxic, No Acute Distress Head Exam: Positive for: ATRAUMATIC, NORMAL INSPECTION, NORMOCEPHALIC Skin: Positive for: Normal Color Eye Exam: Positive for: Normal appearance ENT: Negative for: Pharyngeal Erythema, Tonsillar Exudate, Tonsillar Swelling Neck: Positive for: Supple Cardiovascular/Chest: Positive for: Regular Rate, Rhythm Respiratory: Positive for: Normal Breath Sounds. Negative for: Rales, Rhonchi, Wheezing Gastrointestinal/Abdominal: Positive for: Soft, Other (gravid uterus). Negative for: Tenderness, Mass, Guarding, Rebound Back: Positive for: Normal Inspection Extremity: Positive for: Normal ROM. Negative for: Pedal Edema Neurologic/Psych: Positive for: Alert, Oriented. Negative for: Motor/Sensory Deficits - ECG O2 Sat by Pulse Oximetry: 100 (RA) Pulse Ox Interpretation: Normal Medical Decision Making Medical Decision Making: Assessment: 37yo female, EGA 20 weeks, comes with flu like symptoms Plan: -- Rapid Flu -- Tylenol 650mg PO 1342 heart rate noted to be 157. Pt. well appearing, nontoxic, eating/drinking, abd. soft/nt. will start tamiflu given symptoms. Scribe Attestation: Documented by Mary Jane Berry acting as a scribe for JIMY Quezada. Provider Attestation: All medical record entries made by the Scribe were at my direction and personally dictated by me. I have reviewed the chart and agree that the record accurately reflects my personal performance of the history, physical exam, medical decision making, and the department course for this patient. I have also personally directed, reviewed, and agree with the discharge instructions and disposition. Disposition - Clinical Impression Clinical Impression: Influenza-like symptoms - Patient ED Disposition Is Patient to be Admitted: No Counseled Patient/Family Regarding: Studies Performed, Diagnosis, Need For Followup, Rx Given - Disposition Disposition: Routine/Home Disposition Time: 15:29 Condition: STABLE Prescriptions: Oseltamivir Phosphate [Tamiflu] 75 mg PO BID #10 capsule Instructions: Flu Forms: [facility] (Korean)
[2018-03-21 15:45] VITALS: BP 131/84; PULSE 91; TEMP 98.8
== END 2018-03-21 15:40 | disposition home or self-care (01) ==
LOC: H.ER 11:52
DX: J11.1 Influenza due to unidentified influenza virus with other respiratory manifestations (principal); E03.9 Hypothyroidism, unspecified

== ENCOUNTER 2018-07-14 21:29 | Emergency (ER) | payer OTHER ==
[2018-07-01 14:45] VITALS: BMI 24.0
--- NOTE | 2018-07-14 22:07 | OBHP ---
Datetime: 07/14/2018 21:56 IP Adm Impression: Term, intrauterine IP Admit Plan: Observation/Evaluation Admit Comment, IP Provider: 38 yo f 37.3 wk present due to contraction+ mom discomfort. Pt re port contraction started at 18:00 07/14/18 every 10 mint and small leakage for past 3 days, otherwise pt also state she drank juice today morning which arpita her stomach upset and have not drank or eat properly. Otherwise patient denies watergush, bleeding or any other symptoms. good movemnt repo rted. PCP Dr. Cantor Allergy none PMH Hypothyroid Medication synthroid 137, PNV psh none obgyn 3 nvd 1 pfh none social denies smoke, drink or drug use 20:00 Plan and assessment 38 yo f 37.3 wk present due to contraction+ mom discomfort. + contraction on monitor possible due to dehydration Vitals wnl strip reassuring cervix 1,50 -3 Advise patient to drink water, will discharge home after observation ER precaution given Ysabri PYG1 Case discussed with Dr Black Pelvic Type - PN: Adequate Extremities - PN: Normal Abdomen - PN: Normal Back - PN: Normal Breast - PN: Not Done Lungs - PN: Normal Heart - PN: Normal Thyroid - PN: Normal Neurologic - PN: Normal HEENT - PN: Normal General - PN: Normal FHR - Baseline A Provider: 135 Comments, ACOG Physical Exam: Heart no extra heart sound lung clear abd nontener BS+ Cervix 1cm, 50, -3 Gestation - Est Wks by US: 37.3 EGA AdmitDate IP: 37.3 Vital Signs Provider: Reviewed; Within Normal Limits IP Chief Complaint: Uterine contractions; Maternal discomfort NICHD Variability Prov Fetus A: Moderate 6-25bpm NICHD Accel Fetus A IP Provider: 15X15 NICHD Decel Fetus A IP Provider: None Dilatation, Provider: 1 Effacement, Provider: 50 Station, Provider: -3 Genitourinary Exam: Normal DTRs - PN: Normal
--- NOTE | 2018-07-14 23:14 | OBDCSUM ---
Datetime: 07/14/2018 22:12 Discharged to, Provider: Home Follow up at, Provider: JACKIE Disch Instr Activity: Normal activity Disch Instr Diet: Regular Discharge Diagnosis, Provider: Charly Labor - Undelivered Discharge Time: 07/14/2018 22:13 Disch Referrals: None
[2018-07-15 02:29] VITALS: BP 100/77; PULSE 69; RESP 20; TEMP 98.9; O2SAT 100
== END 2018-07-14 22:13 | disposition home or self-care (01) ==
LOC: H.EROB2 21:29
DX: O26.93 Pregnancy related conditions, unspecified, third trimester (principal); R10.2 Pelvic and perineal pain; Z3A.39 39 weeks gestation of pregnancy

== ENCOUNTER 2018-07-22 10:50 | Emergency (ER) | payer OTHER ==
[2018-07-01 14:45] VITALS: BMI 24.0
[2018-07-22 18:17] VITALS: BP 105/63; PULSE 65
--- NOTE | 2018-07-23 07:57 | OBDCSUM ---
Datetime: 07/22/2018 11:08 Discharge Diagnosis, Provider: False Labor - Undelivered
--- NOTE | 2018-07-23 07:58 | OBHP ---
Datetime: 07/22/2018 11:07 IP Adm Impression: Term, intrauterine IP Admit Plan: Observation/Evaluation Admit Comment, IP Provider: 38 YO with IUP at EGA 38.3 wk presents for evaluation of contract ions while at her visit. ROS: NEgative, except as per HPI. PCP: Dr. Cantor ALLERG: none PMH: Hypothyroid Medication: synthroid 137, PNV PSH: none OBGYN 3 NVD 1 PFH none SOHx: denies smoke, drink or drug use LABS: GBS 07/03 Negative, CL/GN negative, HIV Neg, RPR neg, HBsAg neg, Rubella PE Pelvic eval by Attending: Cervix dilation 1cm OB Hospitalist note. Pt seen with PGY 1 and agree with note MAHNDO - correction. pt wasseen at [facility] and brought upstairs. Pt states that last week, she as 1-2cm dilated. Spoek to Dr Cantor. Jessy larson ncel her appt today and will see pt next week/arrange for IOL Lungs - PN: Normal Heart - PN: Normal Thyroid - PN: Not Done Neurologic - PN: Not Done HEENT - PN: Normal General - PN: Normal IP Hx Assessment: The History has been Reviewed and is Current EGA AdmitDate IP: 38.3 Vital Signs Provider: Reviewed; Within Normal Limits IP Chief Complaint: Uterine contractions Dilatation, Provider: 1
== END 2018-07-22 13:35 | disposition home or self-care (01) ==
LOC: H.EROB2 10:50
DX: O26.93 Pregnancy related conditions, unspecified, third trimester (principal); R10.2 Pelvic and perineal pain; Z3A.38 38 weeks gestation of pregnancy

== ENCOUNTER 2018-07-27 22:23 | Emergency (ER) | payer OTHER ==
[2018-07-01 14:45] VITALS: BMI 24.0
--- NOTE | 2018-07-28 02:15 | OBDCSUM ---
Datetime: 07/28/2018 00:06 Discharged to, Provider: Home Follow up at, Provider: [facility] Disch Instr Activity: Normal activity Disch Instr Diet: Regular Discharge Diagnosis, Provider: [facility] Labor - Undelivered Discharge Time: 07/28/2018 00:06 Follow up in weeks, Provider: Agnes Disch Referrals: None
--- NOTE | 2018-07-28 02:16 | OBHP ---
Datetime: 07/27/2018 23:00 IP Adm Impression: Term, intrauterine ; No Active Labor; Intact Membranes IP Admit Plan: Observation/Evaluation Admit Comment, IP Provider: 38 YO with IUP at EGA 39 wk presents c/o contractions pain over 2 4h but increased at 9pm. No SROM; no VB +FM ROS: NEgative, except as per HPI. PCP: Dr. Cantor ALLERG: none PMH: Hypothyroid Medication: synthroid 137, PNV PSH: none OBGYN 3 NVD 1 PFH none SOHx: denies smoke, drink or drug use LABS: GBS 07/03 Negative, CL/GN negative, HIV Neg, RPR neg, HBsAg neg, Rubella A; term preg not in labor PLAN: conditoin xplained to pt. She will be motniored an see if she continues with CTX/labor. Pain managemtent disucssed/offered. She declines at this time MAHNDO Extremities - PN: Normal Abdomen - PN: Normal General - PN: Normal Presentation-Admit: Vertex Contraction Comments Provider: occ IP Hx Assessment: The History has been Reviewed and is Current EGA AdmitDate IP: 39.1 IP Chief Complaint: Uterine contractions NICHD Variability Prov Fetus A: Moderate 6-25bpm NICHD Accel Fetus A IP Provider: 15X15 FHR Category Provider Fetus A: Category I Dilatation, Provider: 1-2 Effacement, Provider: long Station, Provider:
[2018-07-28 09:31] VITALS: BP 103/56; PULSE 69
== END 2018-07-28 00:10 | disposition home or self-care (01) ==
LOC: H.EROB2 22:23
DX: O26.93 Pregnancy related conditions, unspecified, third trimester (principal); R10.2 Pelvic and perineal pain; Z3A.39 39 weeks gestation of pregnancy; O47.1 False labor at or after 37 completed weeks of gestation

== ENCOUNTER 2018-08-01 09:00 | Inpatient (IN) | payer OTHER ==
[2018-08-01] MEDS ORDERED: Lactated Ringer's 1,000 ML IV ONE ×2 (09:33→11:30)
[2018-08-01 09:34] VITALS: BMI 27.8
[2018-08-01 09:38] VITALS: O2SAT 99
[2018-08-01] MEDS ORDERED: ceFAZolin 2 GM in Sodium Chloride 0.9% 100 ML IVPB ONE (10:06)
[2018-08-01 10:53] LABS: BASO % 0.3 % (0.0-2.0); EOS # 0.1 K/uL (0.0-0.7); EOS % 1.7 % (0.0-4.0); HEMOGLOBIN 12.2 g/dL (12.0-16.0); LYMPH # 1.4 K/uL (1.0-4.3); LYMPH % 20.7 % (20.0-40.0); MEAN CORPUSCULAR HEMOGLOBIN 30.2 pg (27.0-31.0); MEAN CORPUSCULAR HGB CONC 33.2 g/dL (33.0-37.0); MEAN PLATELET VOLUME 8.3 fl (7.2-11.7); MONO # 0.4 K/uL (0.0-0.8); MONO % 5.5 % (0.0-10.0); NEUT # 4.8 K/uL (1.8-7.0); NEUT % 71.8 % (50.0-75.0); NRBC % 0.1 % (0.0-0.0); RBC 4.03 Mil/uL (3.80-5.20); RED CELL DISTRIBUTION WIDTH 13.5 % (11.5-14.5); WHITE BLOOD COUNT 6.7 K/uL (4.8-10.8)
[2018-08-01] MEDS: Lactated Ringer's 1,000 ML IV SCH ×2 (13:05→18:41)
[2018-08-01] MEDS ORDERED: Bupivacaine HCl 0.25% PF (10 ml) Inj ONE (17:43)
[2018-08-01] MEDS ORDERED: Fentanyl/Bupivacaine HCl 250 ML EPI ONE (17:47)
[2018-08-02] MEDS: Lactated Ringer's 1,000 ML IV SCH (00:15)
[2018-08-02] MEDS ORDERED: Oxytocin 30 UNIT in NS 500 ml 30 UNITS/500 ML BAG IV ONE ×2 (00:16→05:26)
[2018-08-02] MEDS ORDERED: Oxycodone/Acetaminophen 5/325 mg Tab PO PRN ×2 (05:26→11:16)
[2018-08-02] MEDS ORDERED: Benzocaine/Menthol SPRAY TOP PRN ×2 (05:26→11:16)
[2018-08-02] MEDS ORDERED: OXYTOCIN/0.9 % NS 20 UNIT/1,000 ML BAG IV ONE (05:26)
[2018-08-02] MEDS ORDERED: Lidocaine 1% Inj (20ml) ONE (09:54)
--- NOTE | 2018-08-02 19:23 | OBDS ---
DELIVERY PERSONNEL Delivery Doctor: Sandy Spann MD Scrub Nurse: Kassidy Springer Radius Corner Machine Operator: Yuliya Sales RN Resident: DR NATHALIA Lee OB FELLOW / DR SARAH COLIN OB RESIDENT MATERNAL INFORMATION Delivery Anesthesia: None Medications in Delivery: PITOCIN Estimated Blood Loss (ml): 200 Placenta Cultured: No Maternal Complications: None RN Comments: SKIN TO SKIN BONDING DONE MOM BREAST FED THE INFANT LOVINGLEY GOOD BONDING NOTED Provider Comments: Uncomplicated spontaneous vaginal delivery of a viable female infant with BW of 3 765g and scores of 9 and 9. Delayed umbilical cord clamping for about 1 minute Placenta delivered spontaneously over an intact perineum. EBL- 200mls. Patient tolerated the procedure well. LABOR SUMMARY EDC: 08/02/2018 00:00 No. Babies in Womb: 1 Attempted: No Labor Anesthesia: Epidural LABOR INFORMATION Reason for Induction: Other Reason for Induction Other: Advanced Maternal Age, recommended per [facility] Onset of Labor: 08/02/2018 00:30 Complete Dilatation: 08/02/2018 04:00 Cervical Ripening Agents: Cytotec @ Oxytocin: N/A Group B Beta Strep: Negative Antibiotics # of Doses: NONE Steroids Given: None Reason Steroids Not Administered: Not Applicable MEMBRANES Membranes Rupture Method: Artificial Rupture of Membranes: 08/01/2018 23:05 Length of Rupture (hrs): 5.85 Amniotic Fluid Color: Clear Amniotic Fluid Amount: Small Amniotic Fluid Odor: Normal STAGES OF LABOR Stage 1 hrs: 3 Stage 1 min: 30 Stage 2 hrs: 0 Stage 2 min: 56 Stage 3 hrs: 0 Stage 3 min: 14 Total Time in Labor hrs: 4 Total Time in Labor min: 40 VAGINAL DELIVERY Episiotomy: None Laceration Extension: N/A Laceration Type: None Laceration Repair: Not Applicable Initial Vag Sponge Count: 5 Final Vag Sponge Count: 5 Initial Vag Sharps Count: 0 Final Vag Sharps Count: 0 Sponge Count Correct: N/A; Yes Sharps Count Correct: N/A Count Comment: YES BABY A INFORMATION Delivery Date/Time: 08/02/2018 04:56 Method of Delivery: Vaginal Born in Route : No : N/A Forceps: N/A Vacuum Extraction: N/A Shoulder Dystocia : No SHOULDER DYSTOCIA BABY A Delivery Date/Time: 08/02/2018 04:56 PRESENTATION/POSITION BABY A Presentation: Cephalic Cephalic Presentation: Vertex Vertex Position: Left Occipital Anterior Breech Presentation: N/A PLACENTA INFORMATION BABY A Placenta Delivery Time : 08/02/2018 05:10 Placenta Method of Delivery: Spontaneous Placenta Status: Delivered SCORES BABY A Heart Rate 1 min: >100 bpm Resp Effort 1 min: Good Cry Reflex Irritability 1 min: Cough or Sneeze or Pulls Away Muscle Tone 1 min: Active Motion Color 1 min: Body [place], Extremities Blue SCORE 1 MIN: 9 Heart Rate 5 min: >100 bpm Resp Effort 5 min: Good Cry Reflex Irritability 5 min: Cough or Sneeze or Pulls Away Muscle Tone 5 min: Active Motion Color 5 min: Body [place], Extremities Blue SCORE 5 MIN: 9 INFORMATION BABY A Gestational Age at Delivery: 40.0 Gestational Status: Term Outcome : Liveborn Infant Condition : Stable Sex: Female IDENTIFICATION/MEDS BABY A ID Band Number: [id number] ID Band Location: Left Leg; Left Arm WEIGHT/LENGTH BABY A Infant Birthweight (gms): 3765 Weight (lb): 8 Weight (oz): 5 CORD INFORMATION BABY A No. Cord Vessels: 3 Nuchal Cord : N/A Cord Blood Taken: Yes Suction: Mouth; Nose; Pharynx ASSESSMENT BABY A Complications: None Physical Findings at Delivery: Within Normal Limits Respirations: Appears Normal Technology Intern/ALS Called : No Infant Care By: PA BRAXTON Transferred To: Remains with Mother RESUSCITATION BABY A Resuscitation Effort: Tactile Stimulation
[2018-08-03 07:01] LABS: BASO % 0.2 % (0.0-2.0); EOS # 0.2 K/uL (0.0-0.7); EOS % 2.1 % (0.0-4.0); HEMOGLOBIN 10.2 g/dL (12.0-16.0); LYMPH # 1.6 K/uL (1.0-4.3); LYMPH % 20.4 % (20.0-40.0); MEAN CELL VOLUME 89.8 fl (81.0-99.0); MEAN CORPUSCULAR HEMOGLOBIN 30.8 pg (27.0-31.0); MEAN CORPUSCULAR HGB CONC 34.2 g/dL (33.0-37.0); MEAN PLATELET VOLUME 8.2 fl (7.2-11.7); MONO # 0.5 K/uL (0.0-0.8); MONO % 6.3 % (0.0-10.0); NEUT # 5.5 K/uL (1.8-7.0); RBC 3.31 Mil/uL (3.80-5.20); RED CELL DISTRIBUTION WIDTH 13.9 % (11.5-14.5); WHITE BLOOD COUNT 7.7 K/uL (4.8-10.8)
--- NOTE | 2018-08-04 07:15 | OBPPN ---
Datetime: 08/04/2018 07:11 PP Pain Prov: Within normal limits PP Abdomen/Uterus Prov: Normal PP Lochia Prov: Normal PP Progress Prov: Normal PP Impression Prov: Normal progression PP Plan Prov: Discharge PP Progress Note Prov: PPD 2 s/p , doing well, breast and bottle feeding Discharge home today Vital Signs Provider PP: Reviewed
--- NOTE | 2018-08-04 08:16 | OBPN ---
Datetime: 08/01/2018 23:05 IP Procedures: Artificial ROM; Scalp Electrode IP Progress Plan: Continue present management; Anticipate Vaginal Delivery Membranes, Provider: Ruptured Amniotic Fluid Color, Provider: Clear Contraction Comments Provider: Q2-4 min FHR - Baseline A Provider: 120 Gestation - Est Wks by US: 39.6 Presentation-Admit: Vertex IP Progress Note Comment: Patient remains comfortable, not feeling ctx or pressure AROM performed, clear fluid Cervical exam unchanged 1. Will watch progress now that she is AROMed 2. Can start pitocin if ctx become less frequent or she was not made change at the next exam Plan discussed with attending, Dr. Zana Cantor MD OB Fellow Vital Signs Provider: Reviewed; Within Normal Limits NICHD Accel Fetus A IP Provider: [id number] FHR Category Provider Fetus A: Category I NICHD Variability Prov Fetus A: Moderate 6-25bpm Dilatation, Provider: 4 Effacement, Provider: 70 Station, Provider: -2 NICHD Decel Fetus A IP Provider: None
--- NOTE | 2018-08-04 08:17 | OBPPN ---
Datetime: 08/03/2018 09:13 PP Pain Prov: Within normal limits PP Nausea Prov: Denies PP Flatus Prov: Yes PP BM Prov: No PP Breasts Prov: Not Done PP Heart Prov: Normal PP Lungs Prov: Normal PP Abdomen/Uterus Prov: Normal PP Lochia Prov: Normal PP Vulva/Perineum Prov: Normal PP CVA Tenderness Prov: Normal PP Extremities Prov: Normal PP C/S Incision Prov: Not Applicable PP Progress Prov: Normal PP Comments Phys Exam Prov: See Note PP Impression Prov: Normal progression PP Plan Prov: Continue present management PP Progress Note Prov: S: 38 yo f S/P NVD Seen and examined PPD1. Patient is doing well, sada erating food, passing gas, passing urine, lochia less than menses, and breast feeding. Patient have n o complains. O:Physical exam: Gen: lying in bed comfortably Heart: S1S2 present, RRR Lungs: normal breathing pattern, clear to auscultation bilaterally Abd: normal bowel sounds, soft, non-tender, fudus firm at umbilicus. Extremities: +1 pedal edema, no erythema/tenderness Psych: appropriate mood, good eye contact A/P:38 yo f S/P NVD PPD1 continue orders Percocet/Motrin prn pain Encourage ambulation/ DC on 08/04/18 [place] PGY1 Case discussed with Attending Attending Note: Patient was discussed with the resident and I agree with the above. Vital Signs Provider PP: Reviewed; Within Normal Limits
[2018-08-04 23:29] VITALS: BP 126/61; PULSE 68; RESP 20; TEMP 98
== END 2018-08-04 10:25 | disposition home or self-care (01) | DRG 373 ==
LOC: H.EROB2 09:00 → H.L&D 09:03 → H.EROB2 09:32 → H.L&D 09:33 → H.OB/GYN 08-02 11:21
PROVIDERS: ADMIT Obstetrics & Gynecology Gynecology; ATTEND Obstetrics & Gynecology Gynecology
PROC: 4A1H74Z Monitoring of Products of Conception, Cardiac Electrical Activity, Via Natural or Artificial Opening (ICD-10-PCS; 2018-08-01)
PROC: 10E0XZZ Delivery of Products of Conception, External Approach (ICD-10-PCS; principal; 2018-08-02)
DX: O80 Encounter for full-term uncomplicated delivery (principal); Z3A.40 40 weeks gestation of pregnancy; Z37.0 Single live birth